=== PATIENT | female | born 1940 | race Two or more races ===

== ENCOUNTER 2021-07-12 10:24 | Emergency (ER) | payer OTHER ==
[~2021-07-12] VITALS: Ht 162.6 cm; Wt 58.1 kg
[2021-07-12] MEDS ORDERED: ZOLOFT25 MG PO (10:45)
[2021-07-12] MEDS ORDERED: CLONAZEPAM0.5 M1 PO (10:45)
== END 2021-07-12 13:40 | disposition home or self-care (01) ==
LOC: ER 10:24
DX: M54.5 Low back pain (principal)

== ENCOUNTER 2023-11-15 14:33 | Inpatient (IN) | payer OTHER ==
[~2023-11-15] VITALS: Ht 121.9 cm; Wt 58.1 kg
[~2023-11-15 14:33] MED LIST: CLONAZEPAM0.5 M1 PO; DICLOFENAC POTA50 MG PO; PREVACID30 MG; ZOCOR40 MG PO; ZOLOFT25 MG PO
[2023-11-15 16:26] LABS: HEMATOCRIT 31.9 % (36.0-45.00); MEAN CELL VOLUME 89.2 fL (80.00-100.00); MEAN CORPUSCULAR HEMOGLOBIN 30.8 pg (27.00-32.0); MEAN CORPUSCULAR HGB CONC 34.5 g/dl (32.0-36.0); PLATELET COUNT 267 K/uL (150-450); RED BLOOD COUNT 3.58 M/uL (4.00-6.00); RED CELL DISTRIBUTION WIDTH 13.1 % (11.5-14.5)
[2023-11-15 16:51] LABS: ALBUMIN 3.9 gm/dL (3.4-5.0); BILIRUBIN TOTAL 0.35 mg/dL (0.3-1.2); CALCIUM 9.3 mg/dL (8.5-10.1); CREATININE SERUM 1.11 mg/dL (0.55-1.02); GFR 46.72; GLOBULINA 3.7 G/DL (2.4-3.5); POTASSIUM 4.34 mEq/L (3.5-5.1); TOTAL PROTEIN 7.6 gm/dL (6.4-8.2)
[2023-11-15 22:04] LABS: D DIMER 0.67 MG/L; INR 0.98; PARTIAL THROMBOPLASTIN TIME 28.5 SECONDS (22.0-34.0); PROTHROMBIN TIME 10.3 SECONDS (9.0-11.5)
[2023-11-15 22:11] LABS: URINE APPEARANCE Clear; URINE BILIRRUBIN Negative (NEGATIVE); URINE BLOOD Negative; URINE COLOR Yellow; URINE GLUCOSE Negative (NEGATIVE); URINE LEUKOCYTE Trace; URINE NITRATE Negative; URINE PROTEIN Negative (NEGATIVE); URINE UROBILINOGEN 0.2 E.U./dl
[2023-11-15 22:16] LABS: URINE BACTERIA 124.5 uL (0.0-1933); URINE EPITHELIAL CELLS 13.7 uL (0.0-38.8); URINE RBC 3.8 uL (0.0-20.8)
[2023-11-15 22:19] LABS: URINE WBC 1.6 uL (0.0-23.2)
[2023-11-16 21:41] LABS: CKMB 2.5 NG/ML (0.5-3.6)
[2023-11-17 06:13] LABS: HEMATOCRIT 32.1 % (36.0-45.00); HEMOGLOBIN 11.1 g/dL (12.0-15.00); MEAN CELL VOLUME 90.3 fL (80.00-100.00); MEAN CORPUSCULAR HEMOGLOBIN 31.1 pg (27.00-32.0); MEAN CORPUSCULAR HGB CONC 34.5 g/dl (32.0-36.0); PLATELET COUNT 285 K/uL (150-450); RED BLOOD COUNT 3.55 M/uL (4.00-6.00); RED CELL DISTRIBUTION WIDTH 13.3 % (11.5-14.5)
[2023-11-17 07:04] LABS: CKMB 3.6 NG/ML (0.5-3.6)
[2023-11-17 07:06] LABS: ALBUMIN 3.8 gm/dL (3.4-5.0); BILIRUBIN TOTAL 0.58 mg/dL (0.3-1.2); CALCIUM 9.1 mg/dL (8.5-10.1); CREATININE SERUM 1.09 mg/dL (0.55-1.02); GFR 47.71; GLOBULINA 4.3 G/DL (2.4-3.5); MAGNESIUM 2.4 mg/dL (1.8-2.4); PHOSPHOROUS 2.8 mg/dL (2.5-4.9); POTASSIUM 3.34 mEq/L (3.5-5.1); TOTAL PROTEIN 8.1 gm/dL (6.4-8.2)
[2023-11-17 13:56] LABS: CKMB 2.7 NG/ML (0.5-3.6)
== END 2023-11-19 17:54 | disposition home or self-care (01) | DRG 291 ==
LOC: ER 14:33 → ICU-2 21:14 → MEDI 11-17 14:52
PROVIDERS: General Practice; ADMIT Internal Medicine; ATTEND Internal Medicine
PROC: B24BZZZ Ultrasonography of Heart with Aorta (ICD-10-PCS; 2023-11-15)
PROC: 4A12X4Z Monitoring of Cardiac Electrical Activity, External Approach (ICD-10-PCS; principal; 2023-11-17)
DX: I13.0 Hypertensive heart and chronic kidney disease with heart failure and stage 1 through stage 4 chronic kidney disease, or unspecified chronic kidney disease (principal); I50.33 Acute on chronic diastolic (congestive) heart failure; N17.9 Acute kidney failure, unspecified; I20.9 Angina pectoris, unspecified; N18.9 Chronic kidney disease, unspecified; E78.5 Hyperlipidemia, unspecified